=== PATIENT | male | born 1995 | race Caucasian/White ===

== ENCOUNTER 2017-04-10 15:30 | Emergency (ER) | payer BC, OTHER ==
[2017-04-10 18:12] VITALS: BP 114/52
[2017-04-10] MEDS ORDERED: Dexamethasone 4 MG/ML SDV IM ONE (18:15)
--- NOTE | 2017-04-10 18:15 | EDM.PDOC ---
ED HPI GENERAL MEDICAL PROBLEM - General Chief Complaint: ENT Problem Stated Complaint: FEVER,SORE THROAT, [id number] Time Seen by Provider: 04/10/17 18:03 Source of Information: Reports: Patient History Limitations: Reports: No Limitations - History of Present Illness INITIAL COMMENTS - FREE TEXT/NARRATIVE: Patient comes emergency Department today with complaints of sore throat. For the past 2-3 days he has had a very full sore throat. He has had fever and chills. He is able to eat and drink but it is somewhat difficult due to pain. He has no shortness of breath. He has not been drooling. He has been drinking oral fluids. He has been taking some Tylenol and ibuprofen which has helped although it is becoming quite sore. No vomiting or cough. No chest congestion. No ear pain or sinus congestion or pain. Throat Pain Score (Numeric/FACES): 6 - Related Data Allergies Allergy/AdvReac Type Severity Reaction Status Date / Time Sulfa (Sulfonamide Allergy Redness Verified 04/10/17 16:39 Antibiotics) Home Meds: Home Meds . [No Known Home Meds] 06/29/14 [History] Past Medical History - Past Health History Medical/Surgical History: Denies Medical/Surgical History Social & Family History - Tobacco Use Smoking Status *Q: Never Smoker Second Hand Smoke Exposure: No - Alcohol Use Days Per Week of Alcohol Use: 0 - Recreational Drug Use Recreational Drug Use: No - Living Situation & Occupation Living situation: Reports: with Family Occupation: Student ED ROS ENT - Review of Systems Review Of Systems: ROS reveals no pertinent complaints other than HPI. ED EXAM, ENT - Physical Exam Exam: See Below Exam Limited By: No Limitations General Appearance: Alert, WD/WN, No Apparent Distress Eye Exam: Bilateral Eye: Normal Inspection Ears: Normal External Exam, Normal Canal, Hearing Grossly Normal, Normal TMs Nose: No Blood, Clear Rhinorrhea, Injected Turbinates Mouth/Throat: Normal Gums, Normal Lips, Pharyngeal Erythema, Throat Pain, Tonsillar Erythema, Tonsillar Exudates, Tonsillar Swelling. No: Drooling, Muffled Voice, Oral Ulcers, Peritonsillar Mass, Throat Swelling, Tongue Swelling , Uvular Deviation, Uvular Edema Head: Atraumatic, Normocephalic Neck: Lymphadenopathy (L), Lymphadenopathy (R) Respiratory/Chest: No Respiratory Distress, Lungs Clear, Normal Breath Sounds, No Accessory Muscle Use, Chest Non-Tender Cardiovascular: Normal Peripheral Pulses, Regular Rate, Rhythm Extremities: Normal Inspection, Normal Capillary Refill Neurological: Alert, Oriented Psychiatric: Normal Affect, Normal Mood Skin: Dry, Intact, Other (Skin is flushed.) Lymphatic: Adenopathy (Bilateral anterior cervical lymphadenopathy.) Course - Vital Signs Last Recorded V/S: Last Vital Signs Temp 38.2 C H 04/10/17 18:11 Pulse 113 H 04/10/17 18:11 Resp 18 04/10/17 18:11 BP 114/52 L 04/10/17 18:11 Pulse Ox 96 04/10/17 18:11 - Orders/Labs/Meds Orders: Active Orders 24 hr Category Date Time Status CULTURE STREP A CONFIRMATION [] Stat Lab 04/10/17 16:33 Results STREP SCRN A RAPID W CULT CONF [] Stat Lab 04/10/17 16:33 Results Labs: Microbiology 04/10/17 16:33 Throat Group A Streptococcus Rapid Screen - Final NEGATIVE STREP A SCREEN Meds: Medications Discontinued Medications Generic Name Dose Route Start Last Admin Trade Name Radhika PRN Reason Stop Dose Admin Hydrocodone Bitart/Acetaminophen 1 tab 04/10/17 18:18 Circle 325-5 Mg PO 04/10/17 18:19 ONETIME ONE Dexamethasone 10 mg 04/10/17 18:15 Dexamethasone IM 04/10/17 18:16 ONETIME ONE - Re-Assessments/Exams Free Text/Narrative Re-Assessment/Exam: 04/10/17 18:24 Although the patient's strep screen is negative. He clearly has quite a bit of purulent discharge from bilateral tonsils and some pharyngeal erythema. We will treat him with Decadron and antibiotics at this time. He was comfortable with this plan and his questions were answered. Departure - Departure Time of Disposition: 18:06 Disposition: Home, Self-Care 01 Clinical Impression: Pharyngitis Qualifiers: Pharyngitis/tonsillitis etiology: unspecified etiology Qualified Code(s): J02.9 - Acute pharyngitis, unspecified - Discharge Information Instructions: Pharyngitis, [id number] Referrals: Alesia Barrera [Primary Care Provider] - Forms: ED Department Discharge Additional Instructions: Tylenol and/or ibuprofen as needed for pain fever discomfort. Amoxicillin 1 g twice a day for the next 10 days. Take until gone matter what. Warm salt water gargles. Increase fluids quite aggressively over the next couple of days. Return to the ED if new or worsening symptoms. Follow up with primary care provider in the next 4-6 days if not improving sooner if not improving or worse. - My Orders Last 24 Hours: My Active Orders 04/10/17 16:33 CULTURE STREP A CONFIRMATION [RM] Stat STREP SCRN A RAPID W CULT CONF [RM] Stat - Assessment/Plan Last 24 Hours: My Active Orders 04/10/17 16:33 CULTURE STREP A CONFIRMATION [RM] Stat STREP SCRN A RAPID W CULT CONF [RM] Stat Assessment:: Pharyngitis. Plan: Tylenol and/or ibuprofen as needed for pain fever discomfort. Amoxicillin 1 g twice a day for the next 10 days. Take until gone matter what. Warm salt water gargles. Increase fluids quite aggressively over the next couple of days. Return to the ED if new or worsening symptoms. Follow up with primary care provider in the next 4-6 days if not improving sooner if not improving or worse.
[2017-04-10] MEDS ORDERED: Acetaminophen/HYDROcodone 325-5 MG Tab PO ONE (18:18)
[2017-04-10] MEDS ORDERED: Dexamethasone 4 MG/ML SDV ONE (18:30)
[2017-04-10] MEDS ORDERED: Amoxicillin 500 MG Cap PO ONE (18:40)
== END 2017-04-10 18:56 | disposition home or self-care (01) ==
LOC: DL.ED 15:30
DX: J02.9 Acute pharyngitis, unspecified (principal); Z88.2 Allergy status to sulfonamides
CPT/HCPCS: 87081; 87430; 96372; 99283; A9270; J1100

== ENCOUNTER 2019-03-02 14:34 | Emergency (ER) | payer BC | END 2019-03-02 16:47 | disposition left against medical advice (07) | LOC: DL.ED 14:34 | DX: Z53.21 Procedure and treatment not carried out due to patient leaving prior to being seen by health care provider (principal); M53.3 Sacrococcygeal disorders, not elsewhere classified; R19.00 Intra-abdominal and pelvic swelling, mass and lump, unspecified site | CPT/HCPCS: 72192; 99282 ==